=== PATIENT | female | born 1995 | race Caucasian/White ===

== ENCOUNTER → 2017-01-16 08:51 | Outpatient (CLI) | payer BC ==
[2016-04-26 11:42] VITALS: BMI 32.6
[~2017-01-16 08:51] MED LIST: IBUPROFEN600 MG PO; PERCOCET 5-3251 TAB PO; PRENATAL COMPLE1 TAB PO
== END | disposition home or self-care (01) ==
LOC: D.MRI 08:51
DX: R51 Headache (principal)

== ENCOUNTER → 2020-02-17 15:32 | Outpatient (CLI) | payer BC ==
[2016-04-26 11:42] VITALS: BMI 32.6
== END | disposition home or self-care (01) ==
LOC: D.RAD 15:32
PROVIDERS: ATTEND Urology
DX: N20.0 Calculus of kidney (principal)

== ENCOUNTER 2020-02-18 09:35 | Day surgery (SDC) | payer BC ==
[~2020-02-18] VITALS: Ht 157.5 cm; Wt 83.9 kg
[2020-02-18 10:13] LABS: BASOPHILS 0.2 % (0-2); EOSINOPHILS 0.4 % (0-7); HEMATOCRIT 35.9 % (36.0-48.0); HEMOGLOBIN 11.7 g/dL (12-16); IMMATURE GRANULOCYTES 0.1 % (0-5); LYMPHOCYTES 24.8 % (15-50); MCH 28.5 pg (26.0-34.0); MCHC 32.6 g/dL (31.0-37.0); MCV 87.3 fL (80.0-100.0); MEAN PLATELET VOLUME 9.2 fL (7.4-10.4); MONOCYTES 7.9 % (2-11); NEUTROPHILS 66.6 % (40-80); PLATELET COUNT 202 10x3/uL (130-400); RBC 4.11 10x6/uL (4.00-5.40); RDW 12.5 % (11.5-14.5); WBC 9.3 10x3/uL (4.8-10.8)
[2020-02-18 10:38] LABS: HCG SERUM NEGATIVE (NEGATIVE)
[2020-02-18 10:48] VITALS: Ht 157.5 cm; Wt 83.9 kg
--- NOTE | 2020-02-18 11:03 | NUR ---
PEPCID 20 MG IV WAS GIVEN PER ORDER. MEDICATION WOULD NOT SCAN.
--- NOTE | 2020-02-18 14:45 | NUR ---
CALL PLACED TO NILSON, DR SAGE'S NURSE TO SCHEDULE A FOLLOW-UP AND KUB ORDERED BY DR SAGE. NILSON STATES "HE IS GOING TO BE OUT OF TOWN IN A MONTH. 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
--- NOTE | 2020-02-19 06:53 | OP ---
PATIENT NAME: AMANDA WORKMAN MEDICAL RECORD: [id number] :89 LOCATION:[facility] ADMISSION DATE: SURGEON: CATHRYN SAGE MD DATE OF OPERATION: 02/18/2020 SURGEON: Cathryn Sage MD ANESTHESIA: General anesthesia by Sheron Rock CRNA. DIAGNOSIS: Left 4mm proximal ureteral stone at L3 transverse process. PROCEDURE: Left extracorporeal shock wave lithotripsy (ESWL) times 2100 shock. CLINICAL HISTORY: This is a 24-year-old female who developed acute left flank pain. She had a CT scan done at [facility], which showed a 4-mm stone in the left proximal ureter. No other stones were seen on the CT. When she came to see me, I obtained a KUB and this showed a radiodense stone in the region of the left proximal ureter. She comes now to have the stone treated with lithotripsy. Because of the relatively small size of the stone, we did not give her a stent. She does not want a stent anyhow. She was given Levaquin IV conventional underwriter to the OR due to her drug allergies. DESCRIPTION OF PROCEDURE: The patient was given induction of general anesthesia in supine position on the treatment table. Fluoroscopy revealed the stone clearly at the L3 vertebral level. The stone was targeted in 2 planes. After 2100 shocks, the stone was seen to have completely broken up. The treatment was then terminated. The patient was awakened and brought to the recovery room. I will see her in followup in 1 month time with a KUB. TRANSINT:[id number] Voice Confirmation ID: [id number] DOCUMENT ID: [id number] CATHRYN SAGE MD at 0653 CC: [id number] DICTATION DATE: 02/18/20 1355 EMBROIDERY SPECIALIST: 02/19/20 0057 [facility] 02/18/20 [id number] [place] [address]
== END 2020-02-18 15:20 | disposition home or self-care (01) ==
LOC: D.OPS 09:35
PROVIDERS: Anesthesiology; ATTEND Urology
DX: N20.1 Calculus of ureter (principal)

== ENCOUNTER 2021-03-07 23:30 | Emergency (ER) | payer BC ==
[~2021-03-07] VITALS: Ht 157.5 cm; Wt 88.6 kg
[2021-03-07 23:42] VITALS: BP 130/86; Ht 157.5 cm; Wt 88.6 kg
== END 2021-03-08 00:36 | disposition home or self-care (01) ==
LOC: D.ER 23:30
DX: M25.572 Pain in left ankle and joints of left foot (principal); S93.402A Sprain of unspecified ligament of left ankle, initial encounter; M79.7 Fibromyalgia; J45.909 Unspecified asthma, uncomplicated; W01.0XXA Fall on same level from slipping, tripping and stumbling without subsequent striking against object, initial encounter; Y93.9 Activity, unspecified; Y92.9 Unspecified place or not applicable